=== PATIENT | male | born 1960 | race Caucasian/White ===

== ENCOUNTER 2019-06-24 11:08 | Outpatient (REF) | payer BC, SELFPAY ==
[2019-06-24 21:23] LABS: Anion Gap 6.8 mmol/L (3-11); BUN 19 mg/dL (7-18); CO2 28.2 mmol/L (21.0-32.0); CREATININE 1.04 mg/dL (0.70-1.30); Chloride 103 mmol/L (98-107); Glucose 117 mg/dL (70-100); Potassium 4.8 mmol/L (3.5-5.1); Sodium 138 mmol/L (136-145)
[2019-06-24 22:17] LABS: Hemoglobin A1C 6.6 % (4.5-6.2)
[2019-06-24 22:19] LABS: COMMENT (LAB VIEW ONLY) 90.81 mg/dL
== END 2019-06-24 11:28 ==
LOC: NCHCN 11:08
PROVIDERS: PCP Internal Medicine; Visit Provider Internal Medicine
DX: I10 Essential (primary) hypertension (principal); E66.9 Obesity, unspecified; Z13.1 Encounter for screening for diabetes mellitus
CPT/HCPCS: 80048; 82043; 82570; 83036

== ENCOUNTER 2019-10-24 10:14 | Outpatient (REF) | payer BC, SELFPAY ==
[2019-10-24 21:39] LABS: Calculated LDL 91 mg/dL; Cholesterol 145 mg/dL (<200); HDL Cholesterol 36 mg/dL (40-60); Triglyceride 91 mg/dL (<150)
== END 2019-10-24 10:34 ==
LOC: NCHCN 10:14
PROVIDERS: PCP Internal Medicine; Visit Provider Internal Medicine
DX: Z13.220 Encounter for screening for lipoid disorders (principal)
CPT/HCPCS: 80061

== ENCOUNTER 2025-10-06 06:34 | Day surgery (SDC) | payer BC, SELFPAY ==
[2025-10-06] MEDS: Tropicam./Phenyleph. (1/2.5%) 5 ML BTL OS ×3 (07:04→07:15)
[2025-10-06 07:06] VITALS: BP 136/81; PULSE 67; RESP 14; TEMP 36.4; O2SAT 100
--- NOTE | 2025-10-06 07:33 | ANES.PREOP_ITS ---
General Info Date of Service Date Performed: 10/06/25 Height: 5 ft 10 in Weight: 101.8 kg Body Mass Index (BMI): 32.2 Surgical Procedure: Operation Date: 10/06/25 08:40 Proposed Procedure Side Surgeon p Cataract Extraction with IOL Implant Left Ayaan Preciado MD Meds Allergies and Home Medications Allergies Allergy/AdvReac Type Severity Reaction Status Date / Time venom-wasp Allergy Severe Anaphylaxis Verified 10/06/25 06:48 Home Medication Medication Instructions Recorded epinephrine 0.3 mg/0.3 mL 0.3 mg IM ONCE PRN 10/04/25 injection, auto-injector (EpiPen) lisinopril 10 mg tablet 10 mg PO DAILY 10/04/25 omeprazole magnesium 20 mg 20 mg PO DAILY 10/04/25 capsule,delayed release triamcinolone acetonide 0.1 % 1 applic topical DAILY P RN 10/04/25 topical cream Current Visit Medications: Current Medications Generic Name Dose Route Start Last Admin Trade Name Freq PRN Reason Stop Dose Admin Acetaminophen 1,000 mg 10/06/25 06:00 Acetaminophen 500 Mg Tab PO 11/05/25 05:59 Q4H PRN PRN Balanced Salt Solution 500 ml 10/06/25 06:00 Balanced Salt Soln.-Plus 500 Ml Bag OP 11/05/25 05:59 DIRECTED KEE Miscellaneous Medication 0 ml 10/06/25 06:00 Prednisolone 1%, Moxifloxacin 0.5%, Bromfenac 0.09% 5.6ml Btl OS 11/05/25 05:59 DIRECTED KEE Miscellaneous Medication 0 ml 10/06/25 06:00 10/06/25 07:15 Tropicam./Phenyleph. 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 eye Acute H25.042 Nuclear age-related cataract, left eye Acute H25.12 Medical History Medical History Colitis History of chicken pox Diverticulosis Hyperlipemia Diabetes Essential hypertension GERD (gastroesophageal reflux disease) Surgical History Surgical History History of fracture of humerus ORIF repair History of tonsillectomy and adenoidectomy History of cholecystectomy History of colonoscopy History of appendectomy Tobacco Smoking/Tobacco Use Status: Never Passive smoking exposure: No Alcohol Alcohol Intake: current Alcohol intake frequency: a few times a month Alcohol type: beer Substance Use Substance use type: does not use Vital Signs and Lab Results Vital Signs Most Recent Vital Signs in EMR: Most Recent Vital Signs Temp Pulse Resp BP Pulse Ox 36.4 C L 67 14 136/81 100 10/06/25 07:06 10/06/25 07:06 10/06/25 07:06 10/06/25 07:06 10/06/25 07:06 Point of Care Results Point of Care Results: Finger Stick Blood Glucose 112 10/06/25 06:53 Anesthesia Assessment and Plan Anesthesia History Personal History: No History of Anesthesia Complications Family History: No Family History of Anesthesia Complications Exercise Tolerance Exercise Tolerance: Metabolic Equivalents>4 Pertinent Negatives Pertinent Negatives: No Symptoms of GERD, No Major Cardiovascular Symptoms or Complaints and No Major Pulmonary Symptoms or Complaints Cardiac & Pulmonary Exam Cardiac Exam: Normal S1/S2 Heart Sounds Pulmonary Exam: Clear Bilateral Breath Sounds Implantable Cardiac Device Does patient have a Pacemaker or an ICD?: No Airway Exam Known Difficult Airway: No Mallampati Class: 2 Mouth Opening: Normal (> 3cm) Thyromental Distance: Greater than 3 cm Neck Range of Motion: Full ROM Neck Circumference: Normal Teeth Condition: Normal Dentition ASA Classification ASA Score: ASA 2 Emergency Case?: No NPO Status NPO Status: NPO Clears >2 hours, Solids >8 hours Anesthesia Plan Resuscitation Status: Full Code Anesthesia Technique: MAC Anesthesia Airway Planned: Natural Airway Monitors Used: Standard Monitors
[2025-10-06 08:00] VITALS: BMI 32.2
[2025-10-06] MEDS: Moxifloxacin-PF 1 MG/ML VIAL (08:16)
[2025-10-06] MEDS: Duovisc Viscoelastic System EACH 1 EACH (08:16)
[2025-10-06] MEDS: Lidocaine 1% Pres-Free 5 ML VIAL (08:16)
[2025-10-06] MEDS: Phenylephrine/Lidocaine (15/10) MG/ML 1 ML VIAL (08:17)
[2025-10-06] MEDS: Povidone-Iodine Ophth 30 ML BTL (08:17)
[2025-10-06] MEDS: Balanced Salt Soln.-PLUS 500 ML BAG OP (08:17)
[2025-10-06] MEDS: Prednisolone 1%, Moxifloxacin 0.5%, Bromfenac 0.09% 5.6ML BTL OS (08:18)
[2025-10-06] MEDS: Tetracaine 0.5% 4 ML BTL OS (08:19)
[2025-10-06 08:39] VITALS: BP 144/82; PULSE 71; RESP 16; TEMP 36.7; O2SAT 98
--- NOTE | 2025-10-06 08:39 | W.PM.DSUDISC ---
Date of service: 10/06/25 Discharge Plan Disposition Patient Disposition: Home Discharge Details Attending Provider: Ayaan Preciado Primary Care Provider: Lili Rodriguez Home Meds and New Rx's Prescriptions: No Action omeprazole magnesium 20 mg capsule,delayed release(DR/EC) 20 mg PO DAILY lisinopril 10 mg tablet 10 mg PO DAILY Patient Comments: TAKE ONE TABLET BY MOUTH EVERY DAY triamcinolone acetonide 0.1 % cream 1 applic TOPICAL DAILY PRN Patient Comments: APPLY TO AFFECTED AREA(S) SPARINGLY DAILY FOR 7 TO 10 DAYS NEEDED epinephrine [EpiPen] 0.3 mg/0.3 mL auto-injector 0.3 mg IM ONCE PRN Discharge Instructions Stand Alone Forms: DSU Post-Op Cataract, Rere Pruitt (DSU), Portal Information Discharge Orders Discharge Orders: Discharge Order (Routine); Ordered 10/06/25 Ordered By: Ayaan Preciado DS: Diagnosis Discharge Diagnosis (1) Posterior subcapsular age-related cataract of left eye: Status: Resolved (2) Nuclear age-related cataract, left eye: Status: Resolved
--- NOTE | 2025-10-06 08:40 | ROE_ITS ---
Operative Note Operative Note PRE-OP DIAGNOSIS: Nuclear/posterior subcapsular cataract, left eye POST-OP DIAGNOSIS: same PROCEDURE: Cataract extraction using phacoemulsification with intraocular lens implant, left eye SURGEON: Ayaan Preciado ANESTHESIA TYPE: Local By Surgeon and MAC Refer to Anesthesia Record PATHOLOGY: none sent COMPLICATIONS: None Patient was transported to: same day Patient's condition: stable Implants: Efe Clareon [id number] Indications: Progressive decreased vision due to cataract, left eye Procedure Description: CATARACT SURGERY OPERATIVE REPORT PREOPERATIVE DIAGNOSIS: Nuclear/posterior subcapsular cataract, left eye POSTOPERATIVE DIAGNOSIS: Same OPERATION: Cataract extraction using phacoemulsification with posterior chamber intraocular lens implant, left eye. IOL: IOL Production Supervisor/Model: Efe Clareon [id number] IOL Power: + 21.0 diopters IOL Serial Number: [id number] Optic Diameter: 6.0mm Haptic/Overall Diameter: 13.0mm PHACO INFO: Efe Centurion Vision System with OZil and Active Fluidics Cumulative Dispersed Energy (CDE): 2.10 seconds SURGEON: Ayaan Preciado MD, AALIYAH ANESTHESIA: Monitored Anesthesia Care (MAC), with local sub-tenon's anesthetic infiltration COMPLICATIONS: None SPECIMENS: None INDICATIONS FOR PROCEDURE: The patient is a 65-year-old male with history of diminished visual acuity in his left eye secondary to the development of nuclear/posterior subcapsular cataract. His significantly symptomatic that he desires cataract surgery and attempt to improve and maximize his vision. The option of cataract surgery was offered to the patient and he wished to proceed. See office notes for detailed information. PROCEDURE: The correct surgical eye was identified and marked as the left eye and the pupil was dilated in the preoperative area using mydriatics and cycloplegics. The dilated pupil size was 7.0 mm. The patient elected to proceed without oral sedation. The patient was brought to the operating room where cardiopulmonary monitoring was instituted and surgical time-out was performed, confirming the correct operative eye and IOL power. Topical anesthesia was administered and ophthalmic povidone-iodine 5% was instilled into the conjunctival fornices. The marcela-ocular area was prepped with Betadine 10% solution and draped in the usual sterile fashion for intraocular surgery, including an aperture drape. A Tegaderm transparent film dressing was cut in half and used to cover the lashes and lid margins. Care was taken to sequester the lashes and lid margins under the Tegaderm dressing. A lid speculum was placed between the lids of the operative eye and the Efe LuxOR Revalia operating microscope was maneuvered into position. Coral scissors were then used to make a conjunctival buttonhole approximately 6mm posterior to the limbus in the inferonasal quadrant. Blunt dissection was carried out to expose bare sclera, and a blunt-tipped sub-tenon’s anesthesia cannula was introduced and passed posteriorly along the globe where non- preserved plain lidocaine was injected into posterior sub-Tenon’s space. A sideport knife was used to make a paracentesis port. Intraocular phenylephrine/lidocaine was injected into the anterior chamber. The anterior chamber was then filled with viscoelastic. A keratome knife was used construct a two-plane clear corneal tunnel extending 2.0mm into clear cornea. A flap was raised on the anterior capsule and capsulorhexis forceps were used to complete a continuous curvilinear capsulorhexis of 5.0 mm. Balanced salt solution was then used to perform cortical cleaving hydrodissection and nuclear hydrodelineation until the lens could be freely rotated within the capsular bag. The lens nucleus was then disassembled and removed within the capsular bag and iris plane using phacoemulsification. Residual cortical material was removed using the irrigation/aspiration handpiece. The posterior capsule was carefully polished to remove as much residual lens epithelial cells as safely possible. The capsular bag was then inflated and the anterior chamber deepened with viscoelastic. The lens implant described above was inserted into the capsular bag using the Efe Autonome Injector. A Kuglen hook was used to dial the IOL into position. Residual viscoelastic was then removed first from posterior to the IOL, then from the anterior chamber using the I/A handpiece. The lens implant was noted to center nicely within the capsular bag. The incisions were stromally hydrated, and the anterior chamber was reformed using BSS. Then 0.5cc of moxifloxacin 1.0mg/ml were injected into the capsular bag and anterior chamber. The incisions were checked with a Weck spear and found to be secure. Several drops of ophthalmic povidone-iodine 5% were then applied to the eye followed by two drops of combination steroid/NSAID/antibiotic solution. The drapes were removed and a clear plastic protective eye shield was placed over the eye. The patient was then returned to Same Day Surgery in stable condition. Date of Procedure: 10/06/25
--- NOTE | 2025-10-06 09:02 | W.ANESPOSTOP ---
Postoperative Evaluation Date, Time and Location Date Performed: 10/06/25 Time Performed: 08:39 Patient Location: Day Surgery Unit Vital Signs Most Recent Imported Vital Signs: Most Recent Vital Signs Temp Pulse Resp BP Pulse Ox 36.7 C 71 16 144/82 H 98 10/06/25 08:39 10/06/25 08:39 10/06/25 08:39 10/06/25 08:39 10/06/25 08:39 Pain Score Most Recent Pain Score: Most Recent Pain Score Pain Level 0 10/06/25 08:39 Assessment Mental Status: Awake (Alert & Oriented to Patient Baseline) Airway and Respiratory Function: Patent airway with normal (patient baseline) respiratory exam Cardiovascular Function: Hemodynamically Stable Hydration Status: Adequately Hydrated Nausea & Vomiting: No Nausea or Vomiting Pain: Pt. Denies Any Pain Peripheral Nerve Block: Patient did not receive a nerve block
== END 2025-10-06 08:58 | disposition home or self-care (01) ==
LOC: SUR 06:34
PROVIDERS: PCP Registered Nurse Diabetes Educator; Visit Provider Ophthalmology
PROC: (CPT 66984; principal; 2025-10-06 08:30)
DX: H25.042 Posterior subcapsular polar age-related cataract, left eye (principal); H25.12 Age-related nuclear cataract, left eye; K21.9 Gastro-esophageal reflux disease without esophagitis
CPT/HCPCS: 66984; 00123; V2632; J2003

== ENCOUNTER 2025-10-13 09:50 | Day surgery (SDC) | payer BC, SELFPAY ==
[2025-10-13 10:05] VITALS: BP 153/87; PULSE 61; RESP 18; TEMP 36; O2SAT 98
[2025-10-13] MEDS: Tropicam./Phenyleph. (1/2.5%) 5 ML BTL OD ×3 (10:19→10:26)
--- NOTE | 2025-10-13 10:40 | ANES.PREOP_ITS ---
General Info Date of Service Date Performed: 10/13/25 Height: 5 ft 10 in Weight: 102.6 kg Body Mass Index (BMI): 32.4 Surgical Procedure: Operation Date: 10/13/25 12:40 Proposed Procedure Side Surgeon p Cataract Extraction with IOL Implant Right Ayaan Preciado MD Meds Allergies and Home Medications Allergies Allergy/AdvReac Type Severity Reaction Status Date / Time venom-wasp Allergy Severe Anaphylaxis Verified 10/13/25 10:21 Home Medication Medication Instructions Recorded epinephrine 0.3 mg/0.3 mL 0.3 mg IM ONCE PRN 10/04/25 injection, auto-injector (EpiPen) lisinopril 10 mg tablet 10 mg PO DAILY 10/04/25 omeprazole magnesium 20 mg 20 mg PO DAILY 10/04/25 capsule,delayed release triamcinolone acetonide 0.1 % 1 applic topical DAILY P RN 10/04/25 topical cream Current Visit Medications: Current Medications Generic Name Dose Route Start Last Admin Trade Name Freq PRN Reason Stop Dose Admin Acetaminophen 1,000 mg 10/13/25 06:00 Acetaminophen 500 Mg Tab PO 11/12/25 05:59 Q4H PRN PRN Balanced Salt Solution 500 ml 10/13/25 06:00 Balanced Salt Soln.-Plus 500 Ml Bag OP 11/12/25 05:59 DIRECTED [facility] Miscellaneous Medication 0 ml 10/13/25 06:00 Prednisolone 1%, Moxifloxacin 0.5%, Bromfenac 0.09% 5.6ml Btl OD 11/12/25 05:59 DIRECTED KEE Miscellaneous Medication 0 ml 10/13/25 06:00 Tropicam./Phenyleph. (1/2.5%) 5 Ml Btl OD 11/12/25 05:59 DIRECTED KEE Tetracaine HCl 0 ml 10/13/25 06:00 Tetracaine 0.5% 4 Ml Btl OD 11/12/25 05:59 DIRECTED KEE PFSH Active Problems Active Problems: Problem Status Onset Code Posterior subcapsular age-related cataract, right eye Acute H25.041 Nuclear age-related cataract, right eye Acute H25.11 Posterior subcapsular age-related cataract of left eye Resolved H25.042 Nuclear age-related cataract, left eye Resolved H25.12 Medical History Medical History Colitis History of chicken pox Diverticulosis Hyperlipemia Diabetes Essential hypertension GERD (gastroesophageal reflux disease) Surgical History Surgical History History of fracture of humerus ORIF repair History of tonsillectomy and adenoidectomy History of cholecystectomy History of colonoscopy History of appendectomy Tobacco Smoking/Tobacco Use Status: Never Passive smoking exposure: No Alcohol Alcohol Intake: current Alcohol intake frequency: a few times a month Alcohol type: beer Substance Use Substance use: Never Substance use type: does not use Vital Signs and Lab Results Vital Signs Most Recent Vital Signs in EMR: Most Recent Vital Signs Temp Pulse Resp BP Pulse Ox 36 C L 61 18 153/87 H 98 10/13/25 10:00 10/13/25 10:00 10/13/25 10:00 10/13/25 10:00 10/13/25 10:00 Point of Care Results Point of Care Results: Finger Stick Blood Glucose 97 10/13/25 10:12 Anesthesia Assessment and Plan Anesthesia History Personal History: No History of Anesthesia Complications Family History: No Family History of Anesthesia Complications Exercise Tolerance Exercise Tolerance: Metabolic Equivalents>4 Cardiac & Pulmonary Exam Cardiac Exam: Normal S1/S2 Heart Sounds Pulmonary Exam: Clear Bilateral Breath Sounds Implantable Cardiac Device Does patient have a Pacemaker or an ICD?: No Airway Exam Known Difficult Airway: No Mallampati Class: 2 Mouth Opening: Normal (> 3cm) Thyromental Distance: Greater than 3 cm Neck Range of Motion: Full ROM Neck Circumference: Normal Teeth Condition: Normal Dentition ASA Classification ASA Score: ASA 2 Emergency Case?: No NPO Status NPO Status: NPO Clears >2 hours, Solids >8 hours Anesthesia Plan Resuscitation Status: Full Code Anesthesia Technique: MAC Anesthesia Airway Planned: Natural Airway Monitors Used: Standard Monitors
[2025-10-13 10:41] VITALS: BMI 32.4
[2025-10-13] MEDS: Lidocaine 1% Pres-Free 5 ML VIAL (11:54)
[2025-10-13] MEDS: Duovisc Viscoelastic System EACH 1 EACH (11:54)
[2025-10-13] MEDS: Phenylephrine/Lidocaine (15/10) MG/ML 1 ML VIAL (11:55)
[2025-10-13] MEDS: Moxifloxacin-PF 1 MG/ML VIAL (11:55)
[2025-10-13] MEDS: Balanced Salt Soln.-PLUS 500 ML BAG OP (11:56)
[2025-10-13] MEDS: Povidone-Iodine Ophth 30 ML BTL (11:56)
[2025-10-13] MEDS: Prednisolone 1%, Moxifloxacin 0.5%, Bromfenac 0.09% 5.6ML BTL OD (11:57)
[2025-10-13] MEDS: Tetracaine 0.5% 4 ML BTL OD (11:58)
[2025-10-13 12:13] VITALS: BP 159/80; PULSE 72; RESP 14; TEMP 36.7; O2SAT 99
--- NOTE | 2025-10-13 12:13 | W.PM.DSUDISC ---
Date of service: 10/13/25 Discharge Plan Disposition Patient Disposition: Home Discharge Details Attending Provider: Ayaan Preciado Primary Care Provider: Lili Rodriguez Home Meds and New Rx's Prescriptions: No Action omeprazole magnesium 20 mg capsule,delayed release(DR/EC) 20 mg PO DAILY lisinopril 10 mg tablet 10 mg PO DAILY Patient Comments: TAKE ONE TABLET BY MOUTH EVERY DAY triamcinolone acetonide 0.1 % cream 1 applic TOPICAL DAILY PRN Patient Comments: APPLY TO AFFECTED AREA(S) SPARINGLY DAILY FOR 7 TO 10 DAYS NEEDED epinephrine [EpiPen] 0.3 mg/0.3 mL auto-injector 0.3 mg IM ONCE PRN Discharge Instructions Stand Alone Forms: DSU Post-Op CataractRere (DSU) Discharge Orders Discharge Orders: Discharge Order (Routine); Ordered 10/12/25 Ordered By: Ayaan Preciado DS: Diagnosis Discharge Diagnosis (1) Posterior subcapsular age-related cataract, right eye: Status: Resolved (2) Nuclear age-related cataract, right eye: Status: Resolved
--- NOTE | 2025-10-13 12:14 | W.PM.OP ---
Operative Note Operative Note PRE-OP DIAGNOSIS: Nuclear/posterior subcapsular cataract, right eye POST-OP DIAGNOSIS: same PROCEDURE: Cataract extraction using phacoemulsification with intraocular lens implant, right eye SURGEON: Ayaan Preciado ANESTHESIA TYPE: Local By Surgeon and MAC Refer to Anesthesia Record ESTIMATED BLOOD LOSS: 0 PATHOLOGY: none sent COMPLICATIONS: None Patient was transported to: same day Patient's condition: stable Implants: Efe Clareon [id number] Indications: Progressive decreased vision due to cataract, right eye Procedure Description: CATARACT SURGERY OPERATIVE REPORT PREOPERATIVE DIAGNOSIS: Nuclear/posterior subcapsular cataract, right eye POSTOPERATIVE DIAGNOSIS: Same OPERATION: Cataract extraction using phacoemulsification with posterior chamber intraocular lens implant, right eye. IOL: IOL Evp And Chief Operating Officer/Model: Efe Clareon [id number] IOL Power: + 21.5 diopters IOL Serial Number: [id number] Optic Diameter: 6.0mm Haptic/Overall Diameter: 13.0mm PHACO INFO: Efe Final[employer]urion Vision System with OZil and Active Fluidics Cumulative Dispersed Energy (CDE): 2.52 seconds SURGEON: Ayaan Preciado MD, AALIYAH ANESTHESIA: Monitored Anesthesia Care (MAC), with local sub-tenon's anesthetic infiltration COMPLICATIONS: None SPECIMENS: None INDICATIONS FOR PROCEDURE: The patient is a 65-year-old male with history of progressive decreased vision in both eyes secondary to the development of nuclear/posterior subcapsular cataract. He is significantly symptomatic and he desires cataract surgery and attempt to improve and maximize his vision. He has already undergone cataract surgery in the left eye and is doing well postoperatively. He now presents for cataract surgery in the right eye. See office notes for detailed information. PROCEDURE: The correct surgical eye was identified and marked as the right eye and the pupil was dilated in the preoperative area using mydriatics and cycloplegics. The dilated pupil size was 8.0 mm. The patient elected to proceed without oral sedation. The patient was brought to the operating room where cardiopulmonary monitoring was instituted and surgical time-out was performed, confirming the correct operative eye and IOL power. Topical anesthesia was administered and ophthalmic povidone-iodine 5% was instilled into the conjunctival fornices. The marcela-ocular area was prepped with Betadine 10% solution and draped in the usual sterile fashion for intraocular surgery, including an aperture drape. A Tegaderm transparent film dressing was cut in half and used to cover the lashes and lid margins. Care was taken to sequester the lashes and lid margins under the Tegaderm dressing. A lid speculum was placed between the lids of the operative eye and the Efe LuxOR Revalia operating microscope was maneuvered into position. Coral scissors were then used to make a conjunctival buttonhole approximately 6mm posterior to the limbus in the inferonasal quadrant. Blunt dissection was carried out to expose bare sclera, and a blunt-tipped sub-tenon’s anesthesia cannula was introduced and passed posteriorly along the globe where non-preserved plain lidocaine was injected into posterior sub-Tenon’s space. A sideport knife was used to make a paracentesis port. Intraocular phenylephrine/lidocaine was injected into the anterior chamber. The anterior chamber was then filled with viscoelastic. A keratome knife was used to construct a two--plane clear corneal tunnel extending 2.0mm into clear cornea. A flap was raised on the anterior capsule and capsulorhexis forceps were used to complete a continuous curvilinear capsulorhexis of 5.5 mm. Balanced salt solution was then used to perform cortical cleaving hydrodissection and nuclear hydrodelineation until the lens could be freely rotated within the capsular bag. The lens nucleus was then disassembled and removed within the capsular bag and iris plane using phacoemulsification. Residual cortical material was removed using the I/A handpiece. The posterior capsule was carefully polished to remove as much residual lens epithelial cells as safely possible. The capsular bag was then inflated and the anterior chamber deepened with cohesive viscoelastic. The lens implant described above was inserted into the capsular bag using the Eef Autonome Injector. A Kuglen hook was used to dial the IOL into position. Residual viscoelastic was then removed first from posterior to the IOL, then from the anterior chamber using the I/A handpiece. The lens implant was noted to center nicely within the capsular bag. The incisions were stromally hydrated, and the anterior chamber was reformed using BSS. Then 0.5cc of moxifloxacin 1.0mg/ml were injected into the capsular bag and anterior chamber. The incisions were checked with a Weck spear and found to be secure. Several drops of ophthalmic povidone-iodine 5% were then applied to the eye followed by two drops of combination steroid/NSAID/antibiotic solution. The drapes were removed and a clear plastic protective eye shield was placed over the eye. The patient was then returned to Same Day Surgery in stable condition. Date of Procedure: 10/13/25
--- NOTE | 2025-10-13 12:30 | W.ANESPOSTOP ---
Postoperative Evaluation Date, Time and Location Date Performed: 10/13/25 Time Performed: 12:25 Patient Location: Day Surgery Unit Vital Signs Most Recent Imported Vital Signs: Most Recent Vital Signs Temp Pulse Resp BP Pulse Ox 36.7 C 72 14 159/80 H 99 10/13/25 12:13 10/13/25 12:13 10/13/25 12:13 10/13/25 12:13 10/13/25 12:13 Pain Score Most Recent Pain Score: Most Recent Pain Score Pain Level 0 10/13/25 12:13 Assessment Mental Status: Awake (Alert & Oriented to Patient Baseline) Airway and Respiratory Function: Patent airway with normal (patient baseline) respiratory exam Cardiovascular Function: Hemodynamically Stable Hydration Status: Adequately Hydrated Nausea & Vomiting: No Nausea or Vomiting Pain: Pt. Denies Any Pain Peripheral Nerve Block: Patient did not receive a nerve block
== END 2025-10-13 12:28 | disposition home or self-care (01) ==
LOC: SUR 09:50
PROVIDERS: PCP Registered Nurse Diabetes Educator; Visit Provider Ophthalmology
PROC: (CPT 66984; principal; 2025-10-13 12:30)
DX: H25.041 Posterior subcapsular polar age-related cataract, right eye (principal); H25.11 Age-related nuclear cataract, right eye; Z98.42 Cataract extraction status, left eye
CPT/HCPCS: 66984; 00123; V2632; J2003